=== PATIENT | male | born 1930 | race Caucasian/White ===

== ENCOUNTER 2018-01-10 | Day surgery (SDC) | END 2018-01-10 14:35 | disposition home or self-care (01) ==

== ENCOUNTER → 2018-03-19 | Outpatient (CLI) | payer OTHER ==
[~2018-03-19] MED LIST: Aspir-Trin325 MG; CALCIUM; CENTRUM SILVER1 EAC2; CENTRUM SILVER1 EAC4; CHOL10002; FISH OIL 1,2001 EAC3; LEVSOD150; LISI20; LOVA40; TIOT18; VIT1CAPS12
[2018-03-19 11:25] LABS: BASOPHILS ABSOLUTE AUTO 0.04 K/mm3 (0.00-0.23); BASOPHILS PERCENT AUTO 0 % (0-2); EOSINOPHILS ABSOLUTE AUTO 0.05 K/mm3 (0.00-0.68); EOSINOPHILS PERCENT AUTO 0 % (0-6); Hematocrit 42.1 % (37.0-53.0); IMMATURE GRAN ABSOLUTE AUTO 0.14 K/mm3 (0.00-0.10); IMMATURE GRAN PERCENT AUTO 1 % (0-1); LYMPHOCYTES PERCENT AUTO 6 % (21-46); MONOCYTES ABSOLUTE AUTO 1.13 K/mm3 (0.16-1.47); MONOCYTES PERCENT AUTO 10 % (4-13); Mean Corpuscular HGB 28.9 pg (26.0-34.0); Mean Corpuscular HGB Conc 33.3 g/dL (31.5-36.5); Mean Corpuscular Volume 87 fL (80-100); Mean Platelet Volume 9.3 fL (9.1-12.4); NEUTROPHILS ABSOLUTE AUTO 9.88 K/mm3 (1.96-9.15); NEUTROPHILS PERCENT AUTO 83 % (41-73); Platelet Count 171 K/mm3 (150-400); RDW Standard Deviation 44.4 fL (35.1-46.3); Red Blood Cell Count 4.85 M/mm3 (4.30-5.90); White Blood Cell Count 11.94 K/mm3 (4.00-11.30)
[2018-03-19 11:48] LABS: Alanine Aminotransfer (ALT/SGP 28 U/L (12-78); Albumin, Blood 3.3 g/dL (3.4-5.0); Albumin/Globulin Ratio 0.8 (0.8-1.8); Alk Phos 70 U/L (40-126); Anion Gap 10 mmol/L (6-16); Aspartate Aminotrans (AST/SGOT 27 U/L (12-37); Bilirubin, Total 0.7 mg/dL (0.1-1.0); Blood Urea Nitrogen 23 mg/dL (8-24); CO2, Blood 24 mmol/L (21-32); Calcium, Blood 8.8 mg/dL (8.5-10.1); Chloride, Blood 103 mmol/L (98-108); Creatinine, Blood 0.92 mg/dL (0.60-1.20); Globulin, Blood 3.9 g/dL (2.2-4.0); Glomerular Filtration Rate >60 (60-); Glucose, Blood 115 mg/dL (70-99); Potassium, Blood 4.2 mmol/L (3.5-5.5); Sodium, Blood 137 mmol/L (136-145); Total Protein, Blood 7.2 g/dL (6.4-8.2)
== END ==
LOC: LAB SHORT 11:22 → LAB EV 11:22
PROVIDERS: Physician Assistant
DX: N39.0 Urinary tract infection, site not specified (principal); R06.00 Dyspnea, unspecified
CPT/HCPCS: 80053; 83880; 85025; 87077; 87086; 87186

== ENCOUNTER 2018-09-06 11:57 | Day surgery (SDC) | payer OTHER ==
[~2018-09-06] VITALS: Ht 177.8 cm; Wt 82.1 kg
[~2018-09-06 11:57] MED LIST changes: +ASPI325EC PO; +Calcium + Vita1 EACH PO; +FISH OIL 1,0001 EAC1 PO; +LEVSOD150 PO; +LISI20 PO; +MUCOSA400 MG PO; +MULTI VITAMIN1 EACH PO; +PRESERVISION A1 EACH PO; +TIOT18 INH; +VITAMIN D32000 UNIT PO
--- NOTE | 2018-09-06 13:23 | NUR ---
09/06/18 1323 Arvind Jimenez WHEN ASKED ABOUT PAIN THE PATIENT REPORTS HIS CURRENT PAIN LEVEL IS 0/10 BUT MOST DAYS IN AFTERNOONS IT REACHES 7-8/10.
--- NOTE | 2018-09-06 13:40 | NUR ---
09/06/18 1340 Arvind Jimenez LATE ENTRY NARRATIVE PATIENT VSS, RESTING COMFORTABLY ON SDU BED, NO COMPLAINTS AT THIS TIME. DISCHARGE INSTRUCTIONS REVIEWED WITH PATIENT, DENIES QUESTIONS AT THIS MOMENT. NURSE ASSISTED PATIENT TO LOBBY EXIT.
== END 2018-09-06 12:52 | disposition home or self-care (01) ==
LOC: ORSCSDS 11:57
PROVIDERS: Anesthesiology
PROC: 3E0R33Z Introduction of Anti-inflammatory into Spinal Canal, Percutaneous Approach (ICD-10-PCS; principal; 2018-09-06 13:00)
DX: M51.16 Intervertebral disc disorders with radiculopathy, lumbar region (principal); E03.9 Hypothyroidism, unspecified; E78.00 Pure hypercholesterolemia, unspecified; I10 Essential (primary) hypertension; J45.909 Unspecified asthma, uncomplicated; Z87.891 Personal history of nicotine dependence; Z79.82 Long term (current) use of aspirin; Z79.899 Other long term (current) drug therapy
CPT/HCPCS: J1040

== ENCOUNTER 2019-04-04 12:54 | Day surgery (SDC) | payer OTHER ==
[~2019-04-04] VITALS: Ht 177.8 cm; Wt 79.1 kg
== END 2019-04-04 14:48 | disposition home or self-care (01) ==
LOC: ORSCSDS 12:54
PROVIDERS: Anesthesiology
PROC: 3E0R33Z Introduction of Anti-inflammatory into Spinal Canal, Percutaneous Approach (ICD-10-PCS; principal; 2019-04-04 14:00)
DX: M51.16 Intervertebral disc disorders with radiculopathy, lumbar region (principal); I10 Essential (primary) hypertension; E78.00 Pure hypercholesterolemia, unspecified; E03.9 Hypothyroidism, unspecified; J45.909 Unspecified asthma, uncomplicated; Z87.891 Personal history of nicotine dependence; Z79.82 Long term (current) use of aspirin; Z79.899 Other long term (current) drug therapy
CPT/HCPCS: J1040